=== PATIENT | male | born 1955 | race Two or more races ===

== ENCOUNTER 2017-02-15 09:47 | Emergency (ER) | payer OTHER ==
[~2017-02-15] VITALS: Ht 162.6 cm; Wt 82.6 kg
[~2017-02-15 09:47] MED LIST: AMLO10TA3 PO; ASPI81CT89 PO; CYCL0.052 OP; ENAL5TAB76 PO; HYDR-4452 PO; METF500T PO; METO25TA PO; NITR0.4T2 SL
--- NOTE | 2017-02-15 09:47 | NUR ---
Patient was BIBA and taken to bed 04 via gurney per EMS.
[2017-02-15 09:48] VITALS: BP 150/84
--- NOTE | 2017-02-15 09:55 | NUR ---
XRAY at bedside.
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
[2017-02-15 10:14] LABS: BASOPHILS # (AUTO) 0.1 K/uL (0.00-0.22); BASOPHILS % (AUTO) 1.1 % (0.0-2.0); EOSINOPHILS # (AUTO) 0.3 K/uL (0-0.4); EOSINOPHILS % (AUTO) 3.8 % (0.0-4.0); HEMATOCRIT 39.2 % (36-52); HEMOGLOBIN 13.2 g/dL (12.0-18.0); LYMPHOCYTES # (AUTO) 1.1 K/uL (2.0-11.5); LYMPHOCYTES % (AUTO) 12.9 % (20.5-51.1); MEAN CORPUSCULAR HEMOGLOBIN 29 pg (27-31); MEAN CORPUSCULAR HGB CONC 34 g/dL (33-37); MEAN CORPUSCULAR VOLUME 87 fL (80-94); MONOCYTES # (AUTO) 0.5 K/uL (0.8-1.0); MONOCYTES % (AUTO) 6.4 % (1.7-9.3); NEUTROPHILS # (AUTO) 6.6 K/uL (1.8-7.7); NEUTROPHILS % (AUTO) 75.8 % (42.2-75.2); PLATELET COUNT (AUTO) 139 K/uL (140-450); RED BLOOD CELL COUNT(AUTO) 4.49 MIL/uL (4.20-6.10); RED CELL DISTRIBUTION WIDTH 12.7 % (11.6-13.7); WHITE BLOOD COUNT (AUTO) 8.6 K/uL (4.8-10.8)
[2017-02-15 10:31] LABS: ALBUMIN 3.6 g/dL (3.4-5.0); ANION GAP 13.4 (8-16); CALCIUM 8.6 mg/dL (8.5-10.1); CARBON DIOXIDE 25.7 mmol/L (21-32); CREATININE 1.1 mg/dL (0.6-1.3); POTASSIUM 4.1 mmol/L (3.5-5.1); TOTAL BILIRUBIN 0.3 mg/dL (0.0-1.0)
[2017-02-15 10:33] LABS: INR 1.1 (0.8-1.2); PARTIAL THROMBOPLASTIN TIME 26.4 secs (22-35.6); PROTHROMBIN TIME 10.1 secs (10.8-13.4)
--- NOTE | 2017-02-15 10:49 | NUR ---
DR. DING EVALUATING PT AT BEDSIDE.
[2017-02-15 11:10] VITALS: BP 144/73
--- NOTE | 2017-02-15 11:19 | NUR ---
Patient discharged with v/s stable. Written and verbal after care instructions given and explained. Patient verbalized understanding. Ambulatory with steady gait. Arm ID band removed. IV Catheter removed. Tip of IV cath intact. All questions addressed prior to discharge. Advised to follow up with PMD.
== END 2017-02-15 11:19 | disposition home or self-care (01) ==
LOC: MED 09:47
DX: R07.89 Other chest pain (principal); E11.9 Type 2 diabetes mellitus without complications; I10 Essential (primary) hypertension; Z79.82 Long term (current) use of aspirin; Z79.899 Other long term (current) drug therapy
CPT/HCPCS: 36415; 71010; 80053; 83880; 84484; 85025; 85610; 85730; 93005; 99285; Q0092

== ENCOUNTER 2017-09-18 20:42 | Observation (INO) | payer OTHER ==
[~2017-09-18] VITALS: Ht 162.6 cm; Wt 81.6 kg
[~2017-09-18 20:42] MED LIST changes: +ACET-787 PO; +ENAL5TAB20 PO; -ENAL5TAB76 PO; -HYDR-4452 PO
[2017-09-18 20:43] VITALS: BP 144/69
--- NOTE | 2017-09-18 20:43 | NUR ---
62/M BIBA FOR CHEST PAIN AT 1800 TODAY, PT REPORTS HE WAS GOING UPSTAIRS WHEN EPISODE HAPPENED X 10 MINS, CHEST PAIN RADIATING TO LT ARM, PT TOOK NTG X2 AND ASA, REPORTS RELIEF OF SYMTPOMS. DENIES ANY CHEST PAIN AT THIS TIME. PT DENIES SOB, N/V, SKIN DRY. PT AOX4, GCS 15. ALL LUNG SOUNDS CBTA, 18RR EVEN AND REGULAR. NO EDEMA NOTED. PMH: HTN, DM, ANGINA. PT PLACED ON LOAN AUDITOR AND O2 2LPMNC. ER MD EVALUATING PT AT BEDSIDE
--- NOTE | 2017-09-18 20:45 | NUR ---
Patient being evaluated by Dr. Girard at bedside.
--- NOTE | 2017-09-18 20:45 | NUR ---
PT PLACED IN BED 12.
[2017-09-18] MEDS ORDERED: NITROGLYCERIN 0.4 MG TAB SL ONE (20:50)
[2017-09-18 21:41] LABS: HEMATOCRIT 38.4 % (36-52); HEMOGLOBIN 12.6 g/dL (12.0-18.0); MEAN CORPUSCULAR HEMOGLOBIN 30 pg (27-31); MEAN CORPUSCULAR HGB CONC 33 g/dL (33-37); MEAN CORPUSCULAR VOLUME 91 fL (80-94); PLATELET COUNT (AUTO) 147 K/uL (140-450); RED BLOOD CELL COUNT(AUTO) 4.23 MIL/uL (4.20-6.10); RED CELL DISTRIBUTION WIDTH 12.7 % (11.6-13.7); WHITE BLOOD COUNT (AUTO) 9.4 K/uL (4.8-10.8)
[2017-09-18 21:50] LABS: ANION GAP 13.3 (8-16); CARBON DIOXIDE 28.1 mmol/L (21-32); CREATININE 1.1 mg/dL (0.7-1.3); POTASSIUM 3.4 mmol/L (3.5-5.1)
[2017-09-18 21:55] LABS: ALBUMIN 3.8 g/dL (3.4-5.0); TOTAL BILIRUBIN 0.2 mg/dL (0.0-1.0)
--- NOTE | 2017-09-18 22:00 | NUR ---
VSS, PT DENIES ANY CP/SOB. ALL NEEDS MET AT THIS TIME, PT LYING COMFORTABLY ON BED, SPOUSE AT BEDSIDE
[2017-09-18 22:07] LABS: BASOPHILS % (MANUAL) 0 % (0-2); EOSINOPHILS % (MANUAL) 2 % (0-4); LYMPHOCYTES % (MANUAL) 25 % (20-46); MONOCYTES % (MANUAL) 5 % (5-12)
[2017-09-18 22:09] LABS: CREATINE KINASE MB 0.5 ng/mL (0-3.6)
[2017-09-18] MEDS ORDERED: INSULIN LISPRO SLIDING SCALE 100 UNITS/ML VIAL SUBQ PRN (23:10)
[2017-09-18] MEDS ORDERED: ENALAPRIL 5 MG TAB PO ONE (23:10)
[2017-09-18] MEDS ORDERED: ONDANSETRON 4 MG/2 ML VIAL IVP PRN (23:10)
[2017-09-18] MEDS ORDERED: ACETAMINOPHEN 325 MG TAB PO PRN (23:10)
[2017-09-18] MEDS ORDERED: HYDROmorphone 1 MG/ML AMP IVP PRN (23:10)
--- NOTE | 2017-09-19 00:10 | NUR ---
Patient will be admitted to [facility]. Admited to TELE. Will go to [id number]. Belongings list completed. Report to JUAN LY. 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 PT STABLE UPON TRANSFER TO TELE. IV'S ARE PATENT AND SL.
[2017-09-19 00:15] VITALS: BP 114/56
--- NOTE | 2017-09-19 00:15 | NUR ---
Admitted from ER, with chief complaint of CHEST PAIN, DX CHEST PAIN. PT'S AT BEDSIDE. PT DENIES ANY CHEST PAIN, SOB, N/V, OR S/S OF ACUTE DISTRESS. 62 y/o, Male, Cooperative, AOX4, AMBULATORY, ABLE TO VERBALIZE NEEDS. COIL PLACER IN PLACE. IV ACCESS ASYMPTOMATIC, PATENT AND INTACT, WILL ADMINISTER IVF ORDERED. DISCUSSED AND REVIEWED PLAN OF CARE WITH PT AND PT'S WHO VERBALIZED UNDERSTANDING. oriented to call light, bed, phone,television, bathroom, smoking policy, visiting hours, procedures, ID bracelet on. Belongings list checked. ALL NEEDS MET. SAFETY MEASURES ENSURED. CALL LIGHT WITHIN REACH. WILL CONTINUE TO MONITOR.
[2017-09-19] MEDS: NACL 0.9% 1,000 ML IV SCH ×2 (00:41→12:47)
--- NOTE | 2017-09-19 00:41 | NUR ---
ADMINISTERED DUE MED VASOTEC 5MG PO WITH EDUCATION. PT VERBALIZED UNDERSTANDING, TOLERATED MED WELL. ALL NEEDS MET. IVF INFUSING WELL. SAFETY MEASURES ENSURED. CALL LIGHT WITHIN REACH. WILL CONTINUE TO MONITOR.
--- NOTE | 2017-09-19 02:04 | NUR ---
PER HOSPITAL PROTOCOL, EDITED CARDIAC PANEL ORDER TO Q8H TO 09/19 0500 AND 1300. ALSO ADDED ACCUCHECK ACHS AND D50 PROTOCOL FOR PT'S EXISTING HUMALOG SLIDING SCALE ORDER SET.
[2017-09-19] MEDS ORDERED: DEXTROSE 50% 50 ML SYR IVP PRN (02:05)
[2017-09-19 04:00] VITALS: BP 107/59
--- NOTE | 2017-09-19 04:17 | NUR ---
PT SLEEPING COMFORTABLY, AROUSABLE TO NAME, NO S/S OF ACUTE DISTRESS. ALL NEEDS MET. IVF INFUSING WELL. SAFETY MEASURES ENSURED. CALL LIGHT WITHIN REACH. WILL CONTINUE TO MONITOR.
[2017-09-19] MEDS: BLOOD GLUCOSE MONITORING 1 DEV DEV FS SCH ×3 (06:23→16:30)
[2017-09-19 06:47] LABS: BASOPHILS # (AUTO) 0.4 K/uL (0.00-0.22); BASOPHILS % (AUTO) 4.8 % (0.0-2.0); EOSINOPHILS # (AUTO) 0.4 K/uL (0-0.4); EOSINOPHILS % (AUTO) 5.5 % (0.0-4.0); HEMATOCRIT 35.2 % (36-52); HEMOGLOBIN 11.8 g/dL (12.0-18.0); LYMPHOCYTES # (AUTO) 1.4 K/uL (2.0-11.5); LYMPHOCYTES % (AUTO) 18.7 % (20.5-51.1); MEAN CORPUSCULAR HEMOGLOBIN 31 pg (27-31); MEAN CORPUSCULAR HGB CONC 34 g/dL (33-37); MEAN CORPUSCULAR VOLUME 91 fL (80-94); MONOCYTES # (AUTO) 0.7 K/uL (0.8-1.0); MONOCYTES % (AUTO) 8.6 % (1.7-9.3); NEUTROPHILS # (AUTO) 4.8 K/uL (1.8-7.7); NEUTROPHILS % (AUTO) 62.4 % (42.2-75.2); PLATELET COUNT (AUTO) 130 K/uL (140-450); RED BLOOD CELL COUNT(AUTO) 3.85 MIL/uL (4.20-6.10); RED CELL DISTRIBUTION WIDTH 12.5 % (11.6-13.7); WHITE BLOOD COUNT (AUTO) 7.7 K/uL (4.8-10.8)
[2017-09-19 07:04] LABS: ALBUMIN 3.1 g/dL (3.4-5.0); ANION GAP 14.8 (8-16); CARBON DIOXIDE 23.9 mmol/L (21-32); POTASSIUM 3.7 mmol/L (3.5-5.1); TOTAL BILIRUBIN 0.3 mg/dL (0.0-1.0)
[2017-09-19 07:06] LABS: CREATINE KINASE MB 0.7 ng/mL (0-3.6)
--- NOTE | 2017-09-19 07:15 | NUR ---
ENDORSED PLAN OF CARE TO AM NURSE. CONDITION STABLE.
--- NOTE | 2017-09-19 07:20 | NUR ---
RECEIVED PT REPORT AT BEDSIDE FROM NIGHT NURSE. PT IS AAOX4 AND SHOWS NO S/S OF ACUTE DISTRESS ON ROOM AIR. PT SKIN IS INTACT. PT ON TELE MONITOR. IV NOTED ON THE RT HAND WITH IVF'S INFUSING WELL. IV IS PATENT AND INTACT WITH NO SIGNS OF INFILTRATION. PT AMB TO BED FROM RR WITH A STEADY GAIT. PT WAS EXPLAINED POC FOR TODAY AND VERBALIZE UNDERSTANDING. THE BED IS IN LOW POSITION WITH CALL LIGHT WITHIN REACH. FALL PRECAUTIONS IN PLACE, ALL NEED'S MET AT THIS TIME. WILL CONTINUE TO MONITOR.
--- NOTE | 2017-09-19 07:40 | NUR ---
PT BEING SEEN BY DR SALES.
[2017-09-19 08:00] VITALS: BP 133/63
--- NOTE | 2017-09-19 08:28 | NUR ---
PATIENT HAS BEEN SCREENED AND CATEGORIZED MODERATE NUTRITION RISK. PATIENT WILL BE SEEN WITHIN 3-5 DAYS OF ADMISSION. 09/21/17-09/23/[address]
[2017-09-19] MEDS ORDERED: METOPROLOL 25 MG TAB PO SCH (09:00)
[2017-09-19] MEDS ORDERED: ASPIRIN 81 MG TAB.CHEW PO SCH (09:00)
[2017-09-19] MEDS ORDERED: ENOXAPARIN 40 MG/0.4 ML SYR SUBQ SCH (09:00)
--- NOTE | 2017-09-19 09:20 | NUR ---
ADMINISTERED SCHEDULED MEDICATIONS. PT TOLERATED ACTIVITY WELL. PT FAMILY AT BEDSIDE. PT DENIES PAIN AND SOB. WILL CONTINUE TO MONITOR.
--- NOTE | 2017-09-19 10:15 | NUR ---
PT IS AMB TO RR AND SHOWS NO S/S OF ACUTE DISTRESS ON ROOM AIR. WILL CONTINUE TO MONITOR.
[2017-09-19 12:00] VITALS: BP 127/56
--- NOTE | 2017-09-19 12:25 | NUR ---
PT TOLERATING DIET WELL AND DENIES PAIN, NAUSEA AND VOMITING. PT IS AAOX4 AND STATED HE WOULD LIKE TO WALK TO LOBBY TO SEE HIS GRANDDAUGHTER. WILL AMB PT TO LOBBY.
--- NOTE | 2017-09-19 12:47 | NUR ---
BEGAN NORMAL SALINE IVF'S AT 75 ML/HR. IVF'S INFUSING WELL.
--- NOTE | 2017-09-19 13:00 | NUR ---
DR CHAIREZ WILL BE IN TO DO PROCEDURE AT [address] [facility] AWARE RODRI WILL NOTIFY. PT AWARE.
--- NOTE | 2017-09-19 13:10 | NUR ---
RECEIVED CALL FROM DR MIHAELA VIEIRA TO [place] TODAY. PT WILL HAVE PRESCRIPTION SENT TO HIS PHARMACY [facility] ON [address] [id number] , PT HAS APPOINTMENT ON SUNDAY AT 10 AM AT HIS OFFICE FOR A DIANNE SCAN. PT IS AWARE. PT WANTED TO TAKE A SHOWER BEFORE HE WAS DC. Addendum: 09/19/17 at 1608 by Sepideh Pringle RN TIME WAS 1510
[2017-09-19] MEDS ORDERED: ISOS10TA9 PO (14:45)
[2017-09-19 14:51] LABS: CREATINE KINASE MB 1.4 ng/mL (0-3.6)
--- NOTE | 2017-09-19 15:45 | NUR ---
PT AMB TO SHOWER WITH A STEADY GAIT. PT IS NOW TAKING A SHOWER.
[2017-09-19 16:00] VITALS: BP 147/73
--- NOTE | 2017-09-19 16:30 | NUR ---
PT HAS BEEN DISCHARGED. DISCHARGE INSTRUCTIONS GIVEN. ALL PAPERWORK SIGNED. ALL QUESTIONS ANSWERED. ALL BELONGINGS IN PATIENT'S POSSESSION. IV DISCONTINUED WITH CANNULA INTACT. WRISTBANDS AND TELE MONITOR REMOVED. PT VERBALIZED UNDERSTANDING OF CONTINUITY OF CARE, IS AWARE OF HIS APPOINTMENT WITH DR CHAIREZ ON 09/24/17 AT 10 AM, AND PRESCRIPTIONS WERE TRANSMITTED TO HIS PHARMACY. OFFERED PATIENT WHEELCHAIR, PATIENT REFUSED. PT AMB OUT OF UNIT WITH STEADY GAIT WITH PRESENT AT SIDE. PATIENT IN STABLE CONDITION.
--- NOTE | 2017-09-19 16:30 | NUR ---
IVF'S WERE DISCONTINUED.
== END 2017-09-19 16:30 | disposition home or self-care (01) ==
LOC: MED 20:42 → MTU 23:13
PROVIDERS: ADMIT Internal Medicine Pulmonary Disease; ATTEND Internal Medicine Pulmonary Disease
DX: I24.9 Acute ischemic heart disease, unspecified (principal); I10 Essential (primary) hypertension; E11.9 Type 2 diabetes mellitus without complications
CPT/HCPCS: 36415; 71010; 80053; 82550; 82553; 82948; 83690; 84484; 85025; 87081; 93005; 93017; 96360; 96361; 96372; 99285; G0378; J1650; J1815; J7030; Q0092

== ENCOUNTER 2018-05-30 00:55 | Emergency (ER) | payer OTHER ==
[~2018-05-30] VITALS: Ht 157.5 cm; Wt 86.2 kg
[~2018-05-30 00:55] MED LIST changes: +ISOS10TA9 PO
[2018-05-30 01:05] VITALS: BP 126/51
[2018-05-30 01:32] LABS: BASOPHILS # (AUTO) 0.1 K/uL (0.00-0.22); BASOPHILS % (AUTO) 0.7 % (0.0-2.0); EOSINOPHILS # (AUTO) 0.3 K/uL (0-0.4); EOSINOPHILS % (AUTO) 3.3 % (0.0-4.0); HEMATOCRIT 34.6 % (36-52); HEMOGLOBIN 11.8 g/dL (12.0-18.0); LYMPHOCYTES # (AUTO) 1.5 K/uL (2.0-11.5); LYMPHOCYTES % (AUTO) 18.7 % (20.5-51.1); MEAN CORPUSCULAR HEMOGLOBIN 30 pg (27-31); MEAN CORPUSCULAR HGB CONC 34 g/dL (33-37); MEAN CORPUSCULAR VOLUME 88.5 fL (80-94); MONOCYTES # (AUTO) 0.7 K/uL (0.8-1.0); MONOCYTES % (AUTO) 9.3 % (1.7-9.3); NEUTROPHILS # (AUTO) 5.3 K/uL (1.8-7.7); PLATELET COUNT (AUTO) 145 K/uL (140-450); RED CELL DISTRIBUTION WIDTH 13.2 % (11.6-13.7); WHITE BLOOD COUNT (AUTO) 7.8 K/uL (4.8-10.8)
[2018-05-30 01:51] LABS: ANION GAP 15.7 (8-16); CARBON DIOXIDE 22.8 mmol/L (21-32); POTASSIUM 3.5 mmol/L (3.5-5.1)
[2018-05-30 01:52] LABS: CREATININE 1.1 mg/dL (0.7-1.3); PROTHROMBIN TIME 9.9 secs (10.8-13.4)
[2018-05-30 01:53] LABS: ALBUMIN 3.3 g/dL (3.4-5.0); TOTAL BILIRUBIN 0.2 mg/dL (0.0-1.0)
[2018-05-30 04:00] VITALS: BP 130/53
== END 2018-05-30 04:05 | disposition home or self-care (01) ==
LOC: MED 00:55
DX: R07.89 Other chest pain (principal); E11.9 Type 2 diabetes mellitus without complications; I10 Essential (primary) hypertension; Z79.82 Long term (current) use of aspirin; Z79.899 Other long term (current) drug therapy
CPT/HCPCS: 36415; 71045; 80053; 83880; 84484; 85025; 85610; 85730; 99285; Q0092

== ENCOUNTER 2019-01-30 22:34 | Emergency (ER) | payer SELFPAY ==
[~2019-01-30 22:34] MED LIST changes: +ASPI-1718 PO; -ASPI81CT89 PO
--- NOTE | 2019-01-30 22:47 | NUR ---
CALLED FOR PT IN ER LOBBY AND OUTSIDE OF ER, NO ANSWER, PT LWBS AT [phone]
--- NOTE | 2019-01-30 23:00 | NUR ---
CALLED FOR PT IN ER LOBBY AND OUTSIDE OF ER, NO ANSWER, PT LWBS AT [phone]
--- NOTE | 2019-01-30 23:14 | NUR ---
CALLED FOR PT IN ER LOBBY AND OUTSIDE OF ER, NO ANSWER, PT LWBS AT [phone]
== END 2019-01-30 22:47 | disposition left against medical advice (07) ==
LOC: MED 22:34
DX: Z53.21 Procedure and treatment not carried out due to patient leaving prior to being seen by health care provider (principal)

== ENCOUNTER 2019-06-22 18:53 | Emergency (ER) | payer OTHER ==
[~2019-06-22] VITALS: Ht 162.6 cm; Wt 80.7 kg
--- NOTE | 2019-06-22 18:53 | NUR ---
PATIENT BIBA TO BED 4 AT THIS TIME.
[2019-06-22 18:59] VITALS: BP 145/63
--- NOTE | 2019-06-22 19:05 | NUR ---
64M BIB EMS C/O CHEST PAIN TODAY WHILE SHOWERING. SHARP, 06/07, FROM RIGHT CHEST RADIATING TO LEFT CHEST. DENIED N/V OR SOB AT THAT TIME. PT TOOK ASA 81MG BEFORE EMS ARRIVAL. EMS TX WITH 2 DOSES OF NTG SL AND PT EXPERIENCES COMPLETE RELIEF OF CP. DENIES ANY PAIN OR DISCOMFORT AT THIS TIME HX HTN, DM
[2019-06-22 21:06] LABS: BASOPHILS # (AUTO) 0.1 K/uL (0.00-0.22); BASOPHILS % (AUTO) 0.6 % (0.0-2.0); EOSINOPHILS # (AUTO) 0.4 K/uL (0-0.4); EOSINOPHILS % (AUTO) 4.3 % (0.0-4.0); HEMATOCRIT 35.3 % (36-52); HEMOGLOBIN 11.9 g/dL (12.0-18.0); LYMPHOCYTES # (AUTO) 1.9 K/uL (2.0-11.5); LYMPHOCYTES % (AUTO) 22.4 % (20.5-51.1); MEAN CORPUSCULAR HEMOGLOBIN 30 pg (27-31); MEAN CORPUSCULAR HGB CONC 34 g/dL (33-37); MEAN CORPUSCULAR VOLUME 88.8 fL (80-94); MONOCYTES # (AUTO) 0.7 K/uL (0.8-1.0); MONOCYTES % (AUTO) 8.4 % (1.7-9.3); NEUTROPHILS # (AUTO) 5.4 K/uL (1.8-7.7); NEUTROPHILS % (AUTO) 64.3 % (42.2-75.2); PLATELET COUNT (AUTO) 146 K/uL (140-450); RED BLOOD CELL COUNT(AUTO) 3.98 MIL/uL (4.20-6.10); RED CELL DISTRIBUTION WIDTH 13.8 % (11.6-13.7); WHITE BLOOD COUNT (AUTO) 8.5 K/uL (4.8-10.8)
[2019-06-22 21:34] LABS: ALBUMIN 3.5 g/dL (3.4-5.0); ANION GAP 14.2 (8-16); CARBON DIOXIDE 23.6 mmol/L (21-32); CREATININE 0.9 mg/dL (0.7-1.3); POTASSIUM 3.8 mmol/L (3.5-5.1); TOTAL BILIRUBIN 0.3 mg/dL (0.0-1.0)
[2019-06-22 21:37] LABS: PROTHROMBIN TIME 9.8 secs (10.8-13.4)
[2019-06-22 21:49] VITALS: BP 137/64
--- NOTE | 2019-06-22 21:50 | NUR ---
PT AWAKE, LAYING ON BED. AT BEDSIDE. PT DENIES ANY PAIN. PT VSS. ERMD AWARE. WILL CONTINUE TO MONITOR.
--- NOTE | 2019-06-22 21:53 | NUR ---
Dr. Garcia examining patient.
--- NOTE | 2019-06-22 23:22 | NUR ---
PT SIGNED AMA. PT VERBALIZED UNDERSTANDING OF SIGNING AMA. TOLD PT WHEN TO RETURN TO ED.
[2019-06-23] MEDS ORDERED: ISOS20TA13 PO (12:57)
[2019-06-23] MEDS ORDERED: ENAL20TA6 PO (12:58)
== END 2019-06-22 23:22 | disposition left against medical advice (07) ==
LOC: MED 18:53
DX: R07.89 Other chest pain (principal); E11.9 Type 2 diabetes mellitus without complications; I10 Essential (primary) hypertension; E78.5 Hyperlipidemia, unspecified; Z79.82 Long term (current) use of aspirin; Z79.84 Long term (current) use of oral hypoglycemic drugs; Z79.899 Other long term (current) drug therapy
CPT/HCPCS: 36415; 71046; 80053; 83690; 83880; 84484; 85025; 85379; 85610; 93005; 93971; 99284; Q0092

== ENCOUNTER 2019-06-23 10:20 | Inpatient (IN) | payer OTHER ==
[~2019-06-23] VITALS: Ht 162.6 cm; Wt 83.0 kg
--- NOTE | 2019-06-23 07:40 | NUR ---
Report received from nurse Carvajal. Pt sleeping, easily arousable to verbal stimuli. Pt a/o w confusion. Denies pain or SOB. Pt peripheral IV in place, patent, no redness or swelling noted to site. No s/s of acute distress at this time. Call light and personal items within easy reach, safety and fall precautions in place, will continue to monitor. Addendum: 06/23/19 at 1637 by Sloane Whiting RN Strike though - Incorrect Pt chart
--- NOTE | 2019-06-23 09:30 | NUR ---
Pt continue sleeping, easily arousable. No s/s of acute distress noted at this time, call light and personal items placed within easy reach, safety and fall precautions in place, will continue to monitor. Addendum: 06/23/19 at 1637 by Sloane Whiting RN Strike though - Incorrect Pt chart
[2019-06-23 10:41] VITALS: BP 140/65
[2019-06-23 11:20] LABS: BASOPHILS # (AUTO) 0.1 K/uL (0.00-0.22); BASOPHILS % (AUTO) 0.7 % (0.0-2.0); EOSINOPHILS # (AUTO) 0.4 K/uL (0-0.4); EOSINOPHILS % (AUTO) 4.7 % (0.0-4.0); HEMATOCRIT 37.6 % (36-52); HEMOGLOBIN 12.6 g/dL (12.0-18.0); LYMPHOCYTES # (AUTO) 1.3 K/uL (2.0-11.5); LYMPHOCYTES % (AUTO) 17.2 % (20.5-51.1); MEAN CORPUSCULAR HEMOGLOBIN 30 pg (27-31); MEAN CORPUSCULAR HGB CONC 33 g/dL (33-37); MEAN CORPUSCULAR VOLUME 90.1 fL (80-94); MONOCYTES # (AUTO) 0.7 K/uL (0.8-1.0); MONOCYTES % (AUTO) 8.8 % (1.7-9.3); NEUTROPHILS # (AUTO) 5.1 K/uL (1.8-7.7); NEUTROPHILS % (AUTO) 68.6 % (42.2-75.2); PLATELET COUNT (AUTO) 161 K/uL (140-450); RED BLOOD CELL COUNT(AUTO) 4.18 MIL/uL (4.20-6.10); RED CELL DISTRIBUTION WIDTH 13.4 % (11.6-13.7); WHITE BLOOD COUNT (AUTO) 7.5 K/uL (4.8-10.8)
--- NOTE | 2019-06-23 11:21 | NUR ---
BIB . 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 PERRLA BRISK 3MM, FULL CLEAR SPEECH. NO FACIAL ASYMMETRY. EQUAL RAYMUNDO STRENGTH TO UPPER AND LOWER EXTREMITIES. PT PLACED ON FULL TARGET AIRCRAFT CONTROLLER. HOB UP. BED SIDE RAILS UP X1. ON LOW BED POSITION, LOCKED. ER TO EVALUATE PT.
--- NOTE | 2019-06-23 11:21 | NUR ---
Patient ambulated to bed 3. RN evaluating patient at bedside.
--- NOTE | 2019-06-23 11:30 | NUR ---
Pt continues sleeping intermittently, ambulatory ad lore to bathroom, denies pain or discomfort, remains confused.No s/s of acute distress at this time. Call light and personal items within easy reach, safety and fall precautions in place, will continue to monitor. Addendum: 06/23/19 at 1637 by Sloane Whiting RN Strike though - Incorrect Pt chart
--- NOTE | 2019-06-23 12:03 | NUR ---
Dr. Girard evaluating patient at bedside.
[2019-06-23] MEDS ORDERED: ASPIRIN 325 MG TAB PO ONE (12:05)
[2019-06-23] MEDS ORDERED: NITROGLYCERIN 0.4 MG TAB SL ONE (12:15)
[2019-06-23 12:28] LABS: CREATINE KINASE MB 1.6 ng/mL (0-3.6)
[2019-06-23 12:29] LABS: POTASSIUM 4.3 mmol/L (3.5-5.1)
[2019-06-23 12:30] LABS: ANION GAP 14.5 (8-16); CARBON DIOXIDE 24.8 mmol/L (21-32); TOTAL BILIRUBIN 0.4 mg/dL (0.0-1.0)
--- NOTE | 2019-06-23 12:30 | NUR ---
PT AAO X4. FULL CLEAR SPEECH. PT DENIES CHEST PAIN AT THIS TIME. EVEN AND UNLABORED BREATHING. AT BEDSIDE. PT IS IN FULL AGING ROOM HAND. WILL CONTINUE TO MONITOR.
[2019-06-23 12:31] LABS: ALBUMIN 3.7 g/dL (3.4-5.0)
[2019-06-23] MEDS ORDERED: MORPHINE SULFATE 2 MG/ML SYR IVP PRN (12:40)
[2019-06-23] MEDS ORDERED: ONDANSETRON 4 MG/2 ML VIAL IM/IVP PRN (12:40)
[2019-06-23] MEDS ORDERED: HYDROcodone/APAP 7.5/325 MG 1 TAB PO PRN (12:40)
[2019-06-23] MEDS ORDERED: DOCUSATE SODIUM 100 MG GELCAP PO PRN (12:40)
[2019-06-23] MEDS ORDERED: ACETAMINOPHEN 325 MG TAB PO PRN (12:40)
--- NOTE | 2019-06-23 12:44 | NUR ---
RESIDENT DOCTORS AT BEDSIDE FOR PT EVALUATION
[2019-06-23] MEDS ORDERED: ISOS20TA13 PO (12:57)
[2019-06-23] MEDS ORDERED: ENAL20TA6 PO (12:58)
[2019-06-23 13:15] LABS: CHOL/HDL RATIO 3.3 (1-4.5); FREE T4 (FREE THYROXINE) 1.05 ng/dL (0.76-1.46); MAGNESIUM 1.8 mg/dL (1.8-2.4); PHOSPHORUS 3.5 mg/dL (2.5-4.9); THYROID STIMULATING HORMONE 1.84 uIU/mL (0.34-3.74)
--- NOTE | 2019-06-23 13:30 | NUR ---
Patient will be admitted to care of DR PITT. Admited to TELE. Will go to room 106 A. Belongings list completed. Report to ALIYAH SHARP.
--- NOTE | 2019-06-23 13:30 | NUR ---
Report received from nurse Walters accompanied by Pt family. Pt a/o able to communicate needs, appropriate for age, oriented to room, patient rights and responsibilities, infection prevention, safety and fall prevention, pt verbalized understanding. Pt denies chest pain at this time. No personal belongings, no s/s of acute distress noted at this time, will continue to monitor.
[2019-06-23 13:33] LABS: PROTHROMBIN TIME 9.7 secs (10.8-13.4)
--- NOTE | 2019-06-23 13:45 | NUR ---
MRSA collected tolerated well. Pt remain a/o no s/s of acute distress, will continue to monitor.
[2019-06-23] MEDS: NACL 0.9% 1,000 ML IV SCH (14:40)
--- NOTE | 2019-06-23 14:45 | NUR ---
urine collected for U/A and drug screen per order. Pt remains a/o no s/s of acute distress, will continue to monitor.
--- NOTE | 2019-06-23 14:59 | NUR ---
PATIENT HAS BEEN SCREENED AND CATEGORIZED MODERATE NUTRITION RISK. PATIENT WILL BE SEEN WITHIN 3-5 DAYS OF ADMISSION. 06/26/19NEELAM [address]
[2019-06-23] MEDS ORDERED: DEXTROSE 50% 50 ML SYR IVP PRN (15:00)
[2019-06-23] MEDS ORDERED: INSULIN LISPRO SLIDING SCALE 100 UNITS/ML VIAL SUBQ PRN (15:00)
[2019-06-23] MEDS ORDERED: NITROGLYCERIN 0.4 MG TAB SL PRN (15:00)
[2019-06-23] MEDS ORDERED: NON-FORMULARY ITEM (Enalapril Maleate 20 MG) PO PRN (15:00)
[2019-06-23] MEDS ORDERED: ENALAPRIL 10 MG TAB PO PRN (15:55)
[2019-06-23 16:00] VITALS: BP 151/66
[2019-06-23] MEDS ORDERED: metFORMIN 500 MG TAB PO SCH ×2 (17:18→21:00)
[2019-06-23] MEDS: BLOOD GLUCOSE MONITORING 1 DEV DEV FS SCH ×2 (17:19→21:48)
[2019-06-23] MEDS: ISOSORBIDE DINITRATE 10 MG TAB PO SCH (17:26)
--- NOTE | 2019-06-23 17:30 | NUR ---
Pt requested IV location change, Peripheral IV removed from R AC gus well, cath intact, no active bleeding noted. Persipheral IV inserted to L have 22g, gus well, positive flash and flush, denies pain or discomfort to site. Dr Nino at bedside to evaluate Pt. Denies CP, denies SOb, no s/s of acute distress noted. Call light and personal items within easy reach, safety and fall precautions in place, will continue to monitor.
[2019-06-23 18:19] LABS: APPEARANCE,URINE CLEAR (CLEAR); BILIRUBIN,URINE NEGATIVE (NEGATIVE); BLOOD, URINE NEGATIVE (NEGATIVE); COLOR,URINE YELLOW (YELLOW); LEUKOCYTE ESTERASE ,URINE NEGATIVE (NEGATIVE); NITRITE, URINE NEGATIVE (NEGATIVE); UGLUCOSE NEGATIVE (NEGATIVE)
[2019-06-23 18:23] LABS: BARBITURATE, URINE NEG. ng/ml (NEG <=200); BENZODIAZEPINE, URINE NEG. ng/mL (NEG <=200); CANNABINOID, URINE NEG. ng/mL (NEG <=50); COCAINE, URINE NEG. ng/mL (NEG <=300); OPIATE, URINE NEG. ng/mL (NEG <=2000); PHENCYCLIDINE SCREEN,URINE NEG. ng/mL (NEG <=25)
--- NOTE | 2019-06-23 19:10 | NUR ---
Report given to night nurse Dolores. Pt remains awake a/o, able to communicate needs. Pt denies chest pain or SOB, call light and personal items within easy reach, safety and fall precautions in place.
--- NOTE | 2019-06-23 19:12 | NUR ---
RECEIVED PT IN STABLE CONDITION FROM AM NURSE FOR CONTINUITY OF CARE, AWAKE,ALERT AND ORIENTED X4. TEL PT. WITH NO C/O ANY DISCOMFORT NOR PAIN NOTED. HAS IVF INFUSING WELL ON THE LT LT HAND G#22. CLEAR AND PATENT. PLAN OF CARE DISCUSSED AND VERBALIZED UNDERSTANDING . BED ON LOW POSITION. SIDE RAILS UP X2 AND CALL LIGHT AND URINAL PLACED WITHIN REACH. WILL CONTINUE TO MONITOR.
[2019-06-23 20:00] VITALS: BP 136/89
--- NOTE | 2019-06-23 21:48 | NUR ---
BLOOD SUGAR WAS CHECKED RESULT 85. PROVIDED WITH C=SOME CRACKERS AND JUICE. WILL CONTINUE TO MONITOR.
--- NOTE | 2019-06-23 23:00 | NUR ---
PT IS ASLEEP. NO S/S OF ANY DISCOMFORT NOTED.
[2019-06-24 00:20] VITALS: BP 140/64
--- NOTE | 2019-06-24 01:00 | NUR ---
MADE ROUNDS. PT IS ASLEEP. NO S/S OF ANY DISCOMFORT NOTED.
--- NOTE | 2019-06-24 03:00 | NUR ---
MADE ROUNDS. PT ASLEEP. NO S/S OF ANY DISCOMFORT NOTED.
[2019-06-24 03:38] VITALS: BP 145/67
--- NOTE | 2019-06-24 05:00 | NUR ---
SLEEPING . NO S/S OF ANY PAIN NOTED.
[2019-06-24] MEDS: NACL 0.9% 1,000 ML IV SCH (05:35)
[2019-06-24] MEDS: BLOOD GLUCOSE MONITORING 1 DEV DEV FS SCH ×2 (06:01→11:49)
--- NOTE | 2019-06-24 06:01 | NUR ---
BLOOD SUGAR THIS AM WAS CHECKED RESULT 149. NO INSULIN NEEDED.
[2019-06-24] MEDS ORDERED: PANTOPRAZOLE 40 MG TABEC PO SCH (06:30)
--- NOTE | 2019-06-24 07:15 | NUR ---
ENDORSED PT IN STABLE CONDITION TO AM NURSE.
--- NOTE | 2019-06-24 07:44 | NUR ---
RECEIVED HAND OFF REPORT FROM PM RN PT AWAKE IN BED PT APPEARS STABLE AND IN NO APPARENT DISTRESS. IVF INFUSING IV SITE PATENT AND SHOWS NO SIGNS OF INFILTRATION OR INFLAMMATION. ALL SAFETY MEASURES ARE IN PLACE WILL CONTINUE TO MONITOR.
[2019-06-24 08:00] VITALS: BP 144/65
[2019-06-24] MEDS ORDERED: metFORMIN 500 MG TAB PO SCH (08:00)
[2019-06-24] MEDS: ISOSORBIDE DINITRATE 10 MG TAB PO SCH ×2 (08:04→13:20)
[2019-06-24] MEDS ORDERED: ASPIRIN 81 MG TAB.CHEW PO SCH (09:00)
[2019-06-24] MEDS ORDERED: amLODIPine 5 MG TAB PO SCH (09:00)
[2019-06-24] MEDS ORDERED: METOPROLOL 25 MG TAB PO SCH (09:00)
--- NOTE | 2019-06-24 09:26 | NUR ---
PT ASKING TO GO TAKE A SHOWER WRAPPED PT IV AND ASSISTED PT TO PATIENT SHOWERS. PT AMBULATED TO THE SHOWER WITH A STEADY GAIT
--- NOTE | 2019-06-24 10:44 | NUR ---
CONTACTED PATIENT'S PCP DR. Ortega ISAAC'S OFFICE AT [phone] FOR PDA, ABLE TO SPEAK TO CRYSTAL. SHE PROVIDED ME WITH Jun AT 1000. COPY OF APPOINTMENT PROVIDED TO THE PATIENT. INSTRUCTED TO BRING DC PACKET TO THE APPOINTMENT. PATIENT ABLE TO VERBALIZE UNDERSTANDING.
--- NOTE | 2019-06-24 11:26 | NUR ---
FREQUENT ROUNDING ON PT PT AWAKE IN BED PT APPEARS STABLE AND IN NO APPARENT DISTRESS
--- NOTE | 2019-06-24 11:50 | NUR ---
FINGERSTICK GLUCOSE 105 NO COVERAGE NEEDED
[2019-06-24 12:05] VITALS: BP 146/65
--- NOTE | 2019-06-24 13:25 | NUR ---
FREQUENT ROUNDING ON PT PT APPEARS STABLE AND IN NO APPARENT DISTRESS. ALL SAFETY MEASURES ARE IN PLACE WILL CONTINUE TO MONITOR
[2019-06-24 14:18] VITALS: BP 146/65
--- NOTE | 2019-06-24 15:34 | NUR ---
DISCHARGED PT AT 1520. PT AMBULATED OUT WITH A STEADY GAIT ADMINISTERED BUS PASS TO PT FOR ACCESS TO HOME. PT REVIEWED DISCHARGE PAPER WORK I ANSWERED ALL QUESTIONS PT AWARE OF FOLLOW UP APPOINTMENT AND PT HAS PRESCRIPTION AND IS AWARE HE CAN FILL IT AT ANY PHARMACY. PT APPEARS STABLE AND IN NO APPARENT DISTRESS ALL SAFETY MEASURES ARE IN PLACE. REMOVED IV IV TIP INTACT. REMOVED ID BAND. PT LEFT WITH ALL PERSONAL BELONGINGS
== END 2019-06-24 15:20 | disposition home or self-care (01) | DRG 203 ==
LOC: MED 10:20 → MTU 12:36 → OBSVTOIN 19:27
PROVIDERS: ADMIT Internal Medicine Cardiovascular Disease; ATTEND Internal Medicine Cardiovascular Disease
DX: M94.0 Chondrocostal junction syndrome [Tietze] (principal); E11.40 Type 2 diabetes mellitus with diabetic neuropathy, unspecified; I27.20 Pulmonary hypertension, unspecified; K21.9 Gastro-esophageal reflux disease without esophagitis; M62.838 Other muscle spasm; I34.0 Nonrheumatic mitral (valve) insufficiency; I11.9 Hypertensive heart disease without heart failure; Z79.899 Other long term (current) drug therapy; Z88.5 Allergy status to narcotic agent; Z98.42 Cataract extraction status, left eye; Z98.41 Cataract extraction status, right eye; Z83.3 Family history of diabetes mellitus; Z82.49 Family history of ischemic heart disease and other diseases of the circulatory system; Z87.891 Personal history of nicotine dependence
CPT/HCPCS: 99285; G0378; 36415; 71045; 80053; 80305; 81003; 82150; 82550; 82553; 82948; 83036; 83690; 83735; 83880; 84100; 84436; 84439; 84443; 84484; 85025; 85610; 85730; 87081; 93005; J1815; J7030

== ENCOUNTER 2020-09-19 17:52 | Emergency (ER) | payer OTHER ==
[~2020-09-19] VITALS: Ht 162.6 cm; Wt 81.6 kg
[~2020-09-19 17:52] MED LIST changes: -ACET-787 PO; -AMLO10TA3 PO; +AMLO10TA88 PO; -ASPI-1718 PO; +ASPI-1822 PO; -CYCL0.052 OP; +ENAL20TA40 PO; -ENAL5TAB20 PO; -ISOS10TA9 PO; +ISOS20TA13 PO
--- NOTE | 2020-09-19 17:52 | NUR ---
PATIENT BIBA ALS TO ER BED 12
[2020-09-19 17:55] VITALS: BP 163/74
--- NOTE | 2020-09-19 18:02 | NUR ---
65 y/o male A&OX4 biba from home c/o sudden onset ride sided non-radiating chest pain while watching football game. Took 8 81mg aspirin prior to ems arriving, .8mg nitro in route. Pt states pain curently 1/10 pressure at chest without exertion. Denies N/V, fever, chills. PMH: HTN, DM RX: Metformin, amlodipine, enalipril, nitroglycerin. Allergies to codeine
--- NOTE | 2020-09-19 18:21 | NUR ---
medical technologist blood bank at pt bedside.
--- NOTE | 2020-09-19 18:26 | NUR ---
linen tech at pt bedside for XR-chest.
[2020-09-19 18:44] LABS: BASOPHILS # (AUTO) 0.1 K/uL (0.00-0.22); BASOPHILS % (AUTO) 0.8 % (0.0-2.0); EOSINOPHILS # (AUTO) 0.3 K/uL (0-0.4); EOSINOPHILS % (AUTO) 4.4 % (0.0-4.0); HEMATOCRIT 38.3 % (36-52); HEMOGLOBIN 12.8 g/dL (12.0-18.0); LYMPHOCYTES # (AUTO) 1.2 K/uL (2.0-11.5); LYMPHOCYTES % (AUTO) 16.5 % (20.5-51.1); MEAN CORPUSCULAR HEMOGLOBIN 30 pg (27-31); MEAN CORPUSCULAR HGB CONC 33 g/dL (33-37); MONOCYTES # (AUTO) 0.9 K/uL (0.8-1.0); MONOCYTES % (AUTO) 12.7 % (1.7-9.3); NEUTROPHILS # (AUTO) 4.9 K/uL (1.8-7.7); NEUTROPHILS % (AUTO) 65.6 % (42.2-75.2); PLATELET COUNT (AUTO) 138 K/uL (140-450); RED BLOOD CELL COUNT(AUTO) 4.21 MIL/uL (4.20-6.10); RED CELL DISTRIBUTION WIDTH 13.1 % (11.6-13.7); WHITE BLOOD COUNT (AUTO) 7.4 K/uL (4.8-10.8)
--- NOTE | 2020-09-19 19:08 | NUR ---
Gave report to Sascha LY, transfered care of pt at this time.
--- NOTE | 2020-09-19 19:16 | NUR ---
Received report from Jenna LY for continuity of care.
[2020-09-19 19:41] LABS: ALBUMIN 3.8 g/dL (3.4-5.0); ANION GAP 14.3 (8-16); CARBON DIOXIDE 25.5 mmol/L (21-32); CREATININE 0.9 mg/dL (0.6-1.3); POTASSIUM 3.8 mmol/L (3.5-5.1); TOTAL BILIRUBIN 0.3 mg/dL (0.0-1.0)
--- NOTE | 2020-09-19 21:23 | NUR ---
Patient appears to be resting comfortably in bed. Vital Signs within normal limits. Respirations even and unlabored. Continues on laboratory monitor, pulse oximetry and bp monitoring.
--- NOTE | 2020-09-19 21:44 | NUR ---
BIBI HOWARD AT BEDSIDE RE-EVALUATING PT .
--- NOTE | 2020-09-19 21:54 | NUR ---
IV removed, catheter intact and site benign. Applied folded 4x4 gauze and tape to stop bleeding.
[2020-09-19 21:55] VITALS: BP 146/78
--- NOTE | 2020-09-19 21:55 | NUR ---
Patient discharged with v/s stable. Written and verbal after care instructions given and explained. Patient verbalized understanding. Ambulatory with steady gait. All questions addressed prior to discharge. Advised to follow up with PMD.
== END 2020-09-19 21:55 | disposition home or self-care (01) ==
LOC: MED 17:52
DX: R07.89 Other chest pain (principal); E11.9 Type 2 diabetes mellitus without complications; I10 Essential (primary) hypertension
CPT/HCPCS: 36415; 71045; 80053; 83690; 83880; 84484; 85025; 93005; 99285

== ENCOUNTER 2021-07-08 23:46 | Emergency (ER) | payer OTHER ==
[~2021-07-08] VITALS: Ht 162.6 cm; Wt 81.6 kg
[2021-07-09 00:10] VITALS: BP 145/73
--- NOTE | 2021-07-09 01:40 | NUR ---
PT LWBS 140
== END 2021-07-09 01:40 | disposition left against medical advice (07) ==
LOC: MED 23:46
DX: Z53.21 Procedure and treatment not carried out due to patient leaving prior to being seen by health care provider (principal)
CPT/HCPCS: 93005